=== PATIENT | male | born 1985 | race Caucasian/White ===

== ENCOUNTER 2021-10-17 11:54 | Outpatient (CLI) | payer SELFPAY ==
--- NOTE | 2021-10-17 13:14 | XRR_ITS ---
PROCEDURE INFORMATION: Exam: XR Left Foot Exam date and time: 10/17/2021 1:16 PM Age: 35 years old Clinical indication: Injury or trauma; Swelling, leg or foot; Blunt trauma; Injury details: A heavy desktop dropped on left foot 2 days ago. C/O left foot pain and swelling; Additional info: Injury to left foot TECHNIQUE: Imaging protocol: XR Left foot. Views: 1 or 2 views. COMPARISON: No relevant prior studies available. FINDINGS: Bones/joints: Oblique slightly displaced fracture through the midshaft great toe metatarsus. Soft tissues: Normal. XR/XR foot LT 2V 11434 IMPRESSION: Oblique slightly displaced fracture through the midshaft great toe metatarsus.
== END 2021-10-17 11:55 | disposition home or self-care (01) ==
LOC: RAD 11:57
PROVIDERS: PCP Internal Medicine; Visit Provider Nurse Practitioner Family
DX: S92.312A Displaced fracture of first metatarsal bone, left foot, initial encounter for closed fracture (principal); X58.XXXA Exposure to other specified factors, initial encounter
CPT/HCPCS: 73620

== ENCOUNTER → 2021-10-25 10:29 | Outpatient (BNVA) | payer SELFPAY | PROVIDERS: PCP Internal Medicine; Visit Provider Podiatrist Foot & Ankle Surgery | DX: S92.312A Displaced fracture of first metatarsal bone, left foot, initial encounter for closed fracture (principal); X58.XXXA Exposure to other specified factors, initial encounter | CPT/HCPCS: 73630 ==

== ENCOUNTER 2021-10-31 10:26 | Day surgery (SDC) | payer SELFPAY ==
[2021-10-30 16:19] VITALS: BMI 27.0
[2021-10-31] VITALS (7 sets, daily range): BP systolic 94–141; BP diastolic 45–89; PULSE 65–80; RESP 11–18; TEMP 36.1–36.7; O2SAT 96–100
--- NOTE | 2021-10-31 | SCC_ITS ---
Procedure done: Open reduction internal fixation left first metatarsal fracture. CPT code 80636 54 seconds of fluoroscopic guidance, for a cumulative dose of 9.340 mGy, was provided to Dr. Mcmahan by the radiology department. C-arm images of the left foot were saved for the patient's permanent record. [facility]
--- NOTE | 2021-10-31 10:41 | PM.OP ---
Operative Report Date of procedure: October 31, 2021 Pre-op diagnosis: Left first metatarsal fracture Post-op diagnosis: Left first metatarsal fracture Post-op findings: Displaced left first metatarsal diaphyseal fracture Procedure done: Open reduction internal fixation left first metatarsal fracture. CPT code 78882 Surgeon: Sanchez Mcmahan D.P.M. Brief History: Dropped a piece of antique furniture on his left foot date of injury 10/15/2021. Given the amount of displacement at the first metatarsal fracture recommended anatomic reduction with internal rigid fixation as his more predictable outcome with normal mechanics of the first ray. Patient is agreeable like to proceed with surgical intervention. Risks include but not limited to pain, bleeding, numbness, infection, deep vein thrombosis, heart attack, stroke, surgical site dehiscence, chronic swelling, damage to adjacent soft tissue structures, allergy to metallic implant, hardware rotation, hardware failure, delayed union, malunion, nonunion and need for further surgical intervention.
[2021-10-31] MEDS: sodium chloride 0.9% 1,000 ML 30 ML IV (10:49)
--- NOTE | 2021-10-31 11:45 | W.PM.OPSUD ---
Surgery/Procedure H&P Update DATE OF PROCEDURE: October 31, 2021 DATE H&P PERFORMED: 10/31/21 CHANGES TO PREVIOUS DOCUMENTATION: None PREOP DIAGNOSIS: Left first metatarsal fracture PLANNED PROCEDURE: Operation Date: 10/31/21 12:00 Proposed Procedures p ORIF Metatarsal 1st, left foot 72540/s92.312a(Left) - Sanchez Mcmahan DPM
--- NOTE | 2021-10-31 11:55 | ANES.PREANE2 ---
Pre-Anesthetic Assessment Height/Weight: Height 1.85 m Weight 92.986 kg Temp Pulse Resp BP Pulse Ox 97.8 F 65 18 141/86 98 10/31/21 10:38 10/31/21 10:38 10/31/21 10:38 10/31/21 10:38 10/31/21 10:38 Preop Diagnosis: Left first metatarsal fracture Operation Date: 10/31/21 12:00 Proposed Procedures p ORIF Metatarsal 1st, left foot 47897/s92.312a(Left) - Sanchez Mcmahan DPM Familial anesthetic complications: none Was Beta Jesús taken within 24 hours: N/A Was Clonidine taken within 24 hours: N/A Last intake: Intake Last Liquid Date 10/30/21 Last Liquid Time 20:30 Last Solid Date 10/30/21 Last Solid Time 19:30 Social No alcohol and No tobacco Exam alert, oriented x 3, clear to auscultation bilaterally and regular rate & rhythm Airway Submandibular: within normal limits Cervical ROM: within normal limits Mallampati: Class III Dentition: full History/ROS No significant complaints Pulmonary None reported CV/HEM None reported None reported Hepatic None reported GI None reported Metabolic Thyroid Disease Musc/skel acute left foot fx Neuropsych None reported Anesthetic Plan ASA status: 1 Anesthesia: Anesthesia Evaluation, General and MAC Other: I discussed with the patient risks, goals, and benefits of MAC and general anesthesia. We discussed spectrum of MAC anesthesia including conversion to general as well as possibility of recall of intraoperative stimuli including discomfort/pain. Patient agrees to proceed with MAC. Risk of > 500 ml blood loss (7ml/kg in children): No Medications/Allergies Home Medications Medication Instructions Recorded Confirmed Last Taken Type levothyroxine 125 mcg tablet 125 mcg PO DAILY 05/31/21 10/31/21 10/31/21 07:00 History (Synthroid) sertraline 50 mg tablet (Zoloft) 50 mg PO DAILY 05/31/21 10/31/21 10/30/21 History walking boot #1 ea 10/17/21 10/25/21 Unknown Rx Cruthes bilaterally #1 ea 10/18/21 10/25/21 Unknown Rx hydrocodone 10 mg-acetaminophen 1 tab PO Q6H 7 Days #28 tab 10/31/21 Unknown Rx 325 mg tablet Allergies Allergy/AdvReac Type Severity Reaction Status Date / Time shellfish derived Allergy ALGY-Swell Verified 10/31/21 10:37 Lip/Tongue/Throat Current Medications Generic Name Dose Route Start Last Admin Trade Name Freq PRN Reason Stop Dose Admin Sodium Chloride 1,000 mls @ 30 mls/hr 10/31/21 10:45 10/31/21 10:49 Sodium Chloride 0.9% IV 11/01/21 10:44 30 mls/hr .Q24H LEXII Administration Data Anesthesia Cardiac Studies: No Data to Display
[2021-10-31] MEDS: lidocaine 2% INJ 20 mL INJECTION (12:49)
--- NOTE | 2021-10-31 13:11 | XR_ITS ---
WS: [id number] Left foot, 3 views, 10/31/2021 Clinical Data: post op Comparison: Left foot, 10/25/2021. Findings: The mid shaft fracture of the left first metatarsal has been reduced with a North pitting plate and 5 screws. The remainder of the foot shows no change. XR/XR foot LT min 3V* [id number] Impression: Internal fixation of left first metatarsal fracture.
--- NOTE | 2021-10-31 13:15 | SUR.PHASEI ---
1309 PT TO PACU 5 PT SLEEPY WITH ORAL AIRWAY IN PLACE VSS LT FOOT IN BOOT WITH SOFT DRESSING AND JERRY TO RT LOWER LEG FOOT, DISTAL TOES PINK WITH CAP REFILL LESS THAN 3 SECONDS. IV TO LT HAND #20 WITH NS 300ML UP AT KVO RATE, ID BRACELET TO LT WRIST PT ID'D WITH 2 IDENTIFIERS. 1320 X RAY AT BEDSIDE PT AWAKES ORAL AIRWAY OUT, PT DENIES PAIN AND NAUSEA VSS.
[2021-10-31] MEDS: HYDROcodone-acetaminophen 5-325 mg Tablet 1 TAB PO (13:59)
--- NOTE | 2021-10-31 17:47 | ANE.PACU2 ---
Inpatient post-anesthesia follow up: Airway intact: Yes Vital signs: Temperature 97.2 F Pulse Rate 70 Respiratory Rate 16 Blood Pressure 111/89 Pulse Oximetry 99 Oxygen Delivery Me thod Room Air Oxygen Flow Rate 8 Fraction of Inspir ed Oxygen Hydration adequate: Yes Nausea and vomiting: No Pain level: 1 Mental status: Baseline
== END 2021-10-31 14:14 | disposition home or self-care (01) ==
PROVIDERS: PCP Internal Medicine; Visit Provider Podiatrist Foot & Ankle Surgery
PROC: (CPT 28485; principal; 2021-10-31 12:00)
DX: S92.312A Displaced fracture of first metatarsal bone, left foot, initial encounter for closed fracture (principal); W23.0XXA Caught, crushed, jammed, or pinched between moving objects, initial encounter
CPT/HCPCS: 28485; 73630; 76000; C1713; J0690; J1100; J2250; J2405; J2704; J3010; J3490; J7030

== ENCOUNTER → 2021-11-16 14:04 | Outpatient (BNVA) | payer SELFPAY | PROVIDERS: PCP Internal Medicine; Visit Provider Podiatrist Foot & Ankle Surgery | DX: Z98.890 Other specified postprocedural states (principal) | CPT/HCPCS: 73630 ==

== ENCOUNTER → 2021-11-30 13:09 | Outpatient (BNVA) | payer SELFPAY | PROVIDERS: PCP Internal Medicine; Visit Provider Podiatrist Foot & Ankle Surgery | DX: Z98.890 Other specified postprocedural states (principal) | CPT/HCPCS: 73630 ==

== ENCOUNTER → 2021-12-14 09:16 | Outpatient (BNVA) | payer SELFPAY | PROVIDERS: PCP Internal Medicine; Visit Provider Podiatrist Foot & Ankle Surgery | DX: Z98.890 Other specified postprocedural states (principal) | CPT/HCPCS: 73630 ==